=== PATIENT | female | born 1935 | race Caucasian/White ===

== ENCOUNTER 2023-03-18 21:24 | Inpatient (IN) ==
--- NOTE | 2023-03-18 21:33 | Emergency Department Note ---
Impression & Plan Closed left hip fracture, Fall, Acute hip pain ED Provider Note NAME: MEREDITH WHITEHEAD AGE: 88 SEX: F : 1935 ARRIVES VIA: Ambulance INFORMANT: Patient, ED PROVIDER(S): Kyler Kent MD CHIEF COMPLAINT: Fall, hip pain MEDICAL DECISION MAKING: Patient presents requesting from associated hip pain concerning for hip fracture. IV was established and blood obtained along with plain films of the left hip and pelvis. Patient was ordered IV morphine and IV Zofran. Patient's blood work shows a normal white count H&H and platelet count. The patient's kidney function is unremarkable. BSG 124 LFTs unremarkable. The patient's left hip x-ray does show an intertrochanteric fracture. Patient patient's family were informed of the findings. I did speak with the on-call hospital service Dr. Servin who and the on-call orthopedist Dr. Urbano was made aware by [place] text. Discussion w/ other healthcare providers: Dr. Servin inpatient medicine service Dr. Urbano orthopedics Prior /Outside records reviewed: None Differential diagnosis: Fracture, sprain, strain, subluxation, dislocation, contusion, ligamentous injury, neurovascular, as well as other etiologies were considered. Diagnostics, as interpreted by me: ECG: Sinus with first-degree AV block, rate of 77 prolonged SC, wide QRS with right bundle branch block pattern. Right axis deviation. No prior EKGs for comparison. Cardiac monitoring: An order was placed for continuous cardiac monitoring. The monitor shows a rate of 78 with sinus rhythm. Patient was placed on pulse oximetry Medical decision rules: None Imaging studies: I informally interpreted the patient's left hip and pelvis x-ray which does show a left intertrochanteric fracture with formal report to follow. I informally interpreted the patient's chest x-ray which does not show obvious pneumonia or pneumothorax with formal report to follow. HPI: Patient presents due to concern for hip pain. The patient was coming down the stairs did not quite separate on the last 2 stairs falling to her left side striking her left hip. The patient was unable to get up and ambulate thereafter. Patient denies any head strike or LOC. The patient's was able to move her legs secondary to pain. Patient did not receive anything prior to arrival and did require help getting up. Patient denies any head neck chest back upper extremity right lower extremity pain. Patient does not take blood thinning medications. PAST MEDICAL HISTORY: Herniated disc, hypertension, GERD PAST SURGICAL HISTORY: Partial colectomy SOCIAL HISTORY: Retired. Speaks Argentine. Lives in [place]. HOME MEDICATIONS: See Below ALLERGIES: See Below VITALS: See Below PHYSICAL EXAMINATION: GENERAL: NAD, non-toxic. EYE EXAM: Normal conjunctiva. PERRL, no anisocoria and EOM's grossly intact w/o pain. OROPHARYNX: Moist mucus membranes, grossly normal dentition. NECK: Supple, no nuchal rigidity, no adenopathy, non-tender. No signs of meningismus. FROM of the neck with good chin to chest and neck extension. No stridor. LUNGS: Clear to auscultation. Normal chest wall mechanics. HEART: NSR, no MRG. ABDOMEN: Abdomen soft, non-tender, no masses, no rebound or guarding. BACK: No CVA TTP. SKIN: No rashes and no bruising. UPPER EXTREMITIES: Upper extremities are grossly normal. LOWER EXTREMITIES: Left lower extremity externally rotated, decreased range of motion secondary to pain neurovascular intact distally in the foot SP DP tibialis nerve DP pulse present NEURO EXAM: A&O x3, cranial nerves II-XII grossly intact, normal speech, moves all 4 extremities. Past Med/Surg History Social History Smoking Status: Never smoker Preferred Language: Argentine Feels Safe at Home: Yes Allergies Allergies Allergy/AdvReac Type Severity Reaction Status Date / Time No Known Allergies Allergy Verified 03/18/23 22:15 Home Meds Home Medications Medication Instructions Recorded Confirmed losartan 25 mg tablet 25 mg PO BID 03/18/23 03/18/23 pantoprazole 40 mg tablet,delayed 40 mg PO DAILY 03/18/23 03/18/23 release vitamin A-vitamin C-vit E-min 1 tab PO DAILY 03/18/23 03/18/23 tablet Results & Data (ED) Vital Signs Vital Signs - 24 hr 03/18/23 21:36 03/18/23 22:02 03/18/23 22:19 Temperature 36.4 C L Temperature Source Oral Pulse Rate 85 80 Pulse Rate [Apical] 60 Pulse Rhythm Regular Respiratory Rate 22 18 27 H Respiratory Effort / Characteristics Respiratory Depth Normal Respiratory Pattern Blood Pressure 203/101 H Blood Pressure [Right Arm] 174/65 H Blood Pressure Mean 135 Blood Pressure Mean [Right Arm] 101 Pulse Oximetry 98 94 99 Oxygen Delivery Method Room Air Room Air Room Air Sepsis Recent Fever Within 48 Hours No Sepsis New/Unexplained Change in Mental Status No Sepsis Action Taken by Nursing No Action Required 03/18/23 22:22 03/18/23 23:04 Temperature Temperature Source Pulse Rate 75 Pulse Rate [Apical] 77 Pulse Rhythm Respiratory Rate 17 Respiratory Effort / Characteristics Non-Labored Respiratory Depth Normal Respiratory Pattern Regular Blood Pressure Blood Pressure [Right Arm] 181/72 H Blood Pressure Mean Blood Pressure Mean [Right Arm] 108 Pulse Oximetry 96 Oxygen Delivery Method Room Air Sepsis Recent Fever Within 48 Hours Sepsis New/Unexplained Change in Mental Status Sepsis Action Taken by Alf Medications Current Medication List: was personally reviewed by me Laboratory Data Attestation: I reviewed the patient's lab results. 03/18/23 21:50 03/18/23 21:50 Lab Results 03/18/23 Range/Units 21:50 WBC 7.35 (4.8-10.8) K/ul RBC 4.30 (4.20-5.40) M/uL Hgb 12.9 (12.0-16.0) g/dl Hct 39.9 (37.0-47.0) % MCV 92.8 (80.0-100.0) fL MCH 30.0 (25.0-34.0) pg MCHC 32.3 (32.0-36.0) g/dL RDW Std Deviation 47.5 H (36.4-46.3) fL RDW Coeff of Teresa 13.9 (11.5-14.5) % Plt Count 192 (130-400) K/uL MPV 11.0 (9.4-12.4) fL Immature Gran % (Auto) 1.0 % Neut % (Auto) 69.8 % Lymph % (Auto) 18.8 % [place] % (Auto) 9.1 % Eos % (Auto) 1.0 % Baso % (Auto) 0.3 % Neut # (Auto) 5.14 (1.40-6.50) K/uL Lymph # (Auto) 1.38 (1.20-3.40) K/uL [place] # (Auto) 0.67 H (0.11-0.59) K/uL Eos # (Auto) 0.07 (0.00-0.50) K/uL Baso # (Auto) 0.02 (0.00-0.20) K/uL Immature Gran # (Auto) 0.07 (0.01-0.20) K/uL Sodium 139 (136-145) mmol/L Potassium 3.8 (3.5-5.1) mmol/L Chloride 104 (98-107) mmol/L Carbon Dioxide 28 (21-32) mmol/L Anion Gap 7 (3-11) BUN 18 (6-23) mg/dl Creatinine 0.94 (0.6-1.2) mg/dl Est Cr Clr Drug Dosing Not Reportable Est GFR ( Amer) 62.3 ml/min Est GFR (Non-Af Amer) 53.8 ml/min BUN/Creatinine Ratio 19.1 (10-20) Glucose 124 H (70-99(Fasting)) mg/dl Calcium 9.4 (8.6-10.3) mg/dl Total Bilirubin 0.4 (0.2-1.0) mg/dl AST 19 (13-39) U/L ALT 13 (7-52) U/L Alkaline Phosphatase 98 (34-104) U/L Total Protein 6.6 (6.0-8.3) gm/dl Albumin 3.9 (3.4-5.0) gm/dl Globulin 2.7 (2.5-4.0) gm/dl Albumin/Globulin Ratio 1.4 (0.9-2) Administered Medications Discontinued Medications Morphine Sulfate (Morphine Sulfate 4 Mg/Ml 1 Ml Carp\Vial) 4 mg IV NOW STA Stop: 03/18/23 22:03 Last Admin: 03/18/23 22:20 Dose: 4 mg Documented By: JEREL Morphine Sulfate (Morphine Sulfate 4 Mg/Ml 1 Ml Carp\Vial) 3 mg IV NOW STA Stop: 03/18/23 23:26 Last Admin: 03/18/23 23:55 Dose: 3 mg Documented By: WILMER Ondansetron HCl (Ondansetron Inj 2 Mg/Ml 2 Ml Vial) 4 mg IV NOW STA Stop: 03/18/23 22:03 Last Admin: 03/18/23 22:21 Dose: 4 mg Documented By: JEREL Discharge Plan Visit Data Chief Complaint: Fall Stated Complaint: FALL DOWN 2 STEPS/HIP INJURY ED Provider: Kyler Kent Discharge Problem: Closed left hip fracture, Fall, Acute hip pain Patient Disposition: Admitted As Inpatient Discharge Instructions Interventions: ED Discharge Assessment Last Done: 03/19/23 00:04 Discharge Problem: Closed left hip fracture Qualifiers: Encounter type: initial encounter Qualified Code(s): S72.002A - Fracture of unspecified part of neck of left femur, initial encounter for closed fracture Fall Qualifiers: Encounter type: initial encounter Qualified Code(s): W19.XXXA - Unspecified fall, initial encounter Acute hip pain Qualifiers: Laterality: left Qualified Code(s): M25.552 - Pain in left hip
[2023-03-18] MEDS ORDERED: MoRPHine SULFATE 4 MG/ML 1 ML CARP\\VIAL IV STA ×2 (22:02→23:25)
[2023-03-18] MEDS ORDERED: ONDANSETRON INJ 2 MG/ML 2 ML VIAL IV STA (22:02)
[2023-03-18 22:17] LABS: Basophils # (auto) 0.02 K/uL (0.00-0.20); Basophils % (auto) 0.3 %; Eosinophils # (auto) 0.07 K/uL (0.00-0.50); Hematocrit (blood only) 39.9 % (37.0-47.0); Hemoglobin 12.9 g/dl (12.0-16.0); Immature Granulocytes # (auto) 0.07 K/uL (0.01-0.20); Lymphocytes # (auto) 1.38 K/uL (1.20-3.40); Lymphocytes % (auto) 18.8 %; Mean Corpuscular Hgb Conc 32.3 g/dL (32.0-36.0); Mean Corpuscular Volume 92.8 fL (80.0-100.0); Monocytes # (auto) 0.67 K/uL (0.11-0.59); Monocytes % (auto) 9.1 %; Neutrophils # (auto) 5.14 K/uL (1.40-6.50); Neutrophils % (auto) 69.8 %; Platelet Count 192 K/uL (130-400); RDW Coefficient of Variation 13.9 % (11.5-14.5); RDW Standard Deviation 47.5 fL (36.4-46.3); White Blood Count 7.35 K/ul (4.8-10.8)
[2023-03-18 22:21] LABS: Alanine Aminotransferase 13 U/L (7-52); Albumin Globulin Ratio 1.4 (0.9-2); Albumin Level 3.9 gm/dl (3.4-5.0); Alkaline Phosphatase 98 U/L (34-104); Anion Gap 7 (3-11); Aspartate Aminotransferase 19 U/L (13-39); BUN Creatinine Ratio 19.1 (10-20); Bilirubin,Total 0.4 mg/dl (0.2-1.0); Blood Urea Nitrogen 18 mg/dl (6-23); Calcium 9.4 mg/dl (8.6-10.3); Carbon Dioxide 28 mmol/L (21-32); Chloride 104 mmol/L (98-107); Est GFR (African American) 62.3 ml/min; Est GFR (Non-African American) 53.8 ml/min; Globulin 2.7 gm/dl (2.5-4.0); Glucose 124 mg/dl (70-99(Fasting)); Potassium 3.8 mmol/L (3.5-5.1); Sodium 139 mmol/L (136-145); Total Protein 6.6 gm/dl (6.0-8.3)
--- NOTE | 2023-03-19 00:01 | History & Physical Report ---
Date of Service March 18, 2023 Assessment & Plan (1) Hip fracture, left: Plan: 88-year-old female with past medical history significant for hypertension and GERD who is from [place] and visiting [place] s/p fall and left hip fracture. Left hip fracture Status post mechanical fall No significant cardiac or pulmonary history Ambulates okay prior to fall Patient should be at acceptable risk to proceed with surgery Pain control N.p.o. IV fluids Ortho consult Close monitor History of hypertension Hold losartan for now IV hydralazine as needed GERD PPI DVT prophylaxis Could not place on SCDs because of hip fracture. As per Ortho after procedure Disposition Medical floor Full code History of Present Illness Chief Complaint: Fall and left hip fracture Primary Care Provider: SVETLANA HURTADO 88-year-old female with past medical history significant for hypertension and GERD who is from [place] and visiting [place] is s/p fall and left hip fracture. Patient was trying to go to bathroom when she was trying to open the door she slipped and fell on the left side. Did not hit her head. No loss of consciousness. Not able to get up. And was brought in here and found a left hip fracture. Any movement is making her pain worse. No chest pain falling down. Patient is somewhat hard of hearing. Family in the room. Patient denies headache. No neck pain. No chest pain. Was nauseous after falling down. Was slightly short of breath because of anxiety and pain. No fevers. No recent cough. Currently hemodynamically stable. Past med history. As mentioned above Past surgical history. Hysterectomy. Had intestinal resection for for cancer in 2019 with no recurrence as per family. Social history. Quit smoking 40 years ago. No alcohol use. Family history. Significant for cancer in the family Allergies Allergy/AdvReac Type Severity Reaction Status Date / Time No Known Allergies Allergy Verified 03/18/23 22:15 Home Medications Medication Instructions Recorded Confirmed Type losartan 25 mg tablet 25 mg PO BID 03/18/23 03/18/23 History pantoprazole 40 mg tablet,delayed 40 mg PO DAILY 03/18/23 03/18/23 History release vitamin A-vitamin C-vit E-min 1 tab PO DAILY 03/18/23 03/18/23 History tablet Past Med/Surg History Social History Smoking Status: Never smoker Hx Alcohol Use: No Hx Substance Use: No Preferred Language: Lithuanian Communication Ability: Impaired Communication Ability Comment: pt is [place] [employer] Protection Technician Required: No Beliefs That Will Affect Care: None Current Living Situation: Alone Feels Safe at Home: Yes Safety Concerns: Feels Safe At This Time Assistive Devices: Glasses Review of Systems Review of Systems: All systems reviewed & are unremarkable except as noted in HPI & below Physical Exam Physical Exam: General- Not in distress Head- atraumatic Eyes- PERRL. ENT- oropharynx clear Neck- supple, no JVD. Lungs- clear to auscultation, no wheezing or crackles. Heart- regular rhythm; no murmur, no gallop. Abdomen- normal bowel sounds, soft, nontender, no distension. Extremities- Left lower extremity shortened and externally rotated,No edema or erythema seen. Neuro- alert, oriented PERRL,Hard of hearing no facial palsy; no dysarthria;Obeys commands. Skin- warm & dry Results & Data Results & Data Vital Signs (Past 12 Hours) Vital Signs Temp Pulse Pulse Resp BP BP Pulse Ox 03/18/23 23:04 77 17 181/72 H 96 03/18/23 22:22 75 03/18/23 22:19 60 27 H 174/65 H 99 03/18/23 21:36 36.4 C L 85 22 203/101 H 98 O2 Del Method 03/18/23 23:04 Room Air 03/18/23 22:22 03/18/23 22:19 Room Air 03/18/23 21:36 Room Air Diagnostic Findings Laboratory Results WBC 7.35 K/ul (4.8-10.8) 03/18/23 21:50 RBC 4.30 M/uL (4.20-5.40) 03/18/23 21:50 Hgb 12.9 g/dl (12.0-16.0) 03/18/23 21:50 Hct 39.9 % (37.0-47.0) 03/18/23 21:50 MCV 92.8 fL (80.0-100.0) 03/18/23 21:50 MCH 30.0 pg (25.0-34.0) 03/18/23 21:50 MCHC 32.3 g/dL (32.0-36.0) 03/18/23 21:50 RDW Std Deviation 47.5 fL (36.4-46.3) H 03/18/23 21:50 RDW Coeff of Teresa 13.9 % (11.5-14.5) 03/18/23 21:50 Plt Count 192 K/uL (130-400) 03/18/23 21:50 MPV 11.0 fL (9.4-12.4) 03/18/23 21:50 Immature Gran % (Auto) 1.0 % 03/18/23 21:50 Neut % (Auto) 69.8 % 03/18/23 21:50 Lymph % (Auto) 18.8 % 03/18/23 21:50 [place] % (Auto) 9.1 % 03/18/23 21:50 Eos % (Auto) 1.0 % 03/18/23 21:50 Baso % (Auto) 0.3 % 03/18/23 21:50 Neut # (Auto) 5.14 K/uL (1.40-6.50) 03/18/23 21:50 Lymph # (Auto) 1.38 K/uL (1.20-3.40) 03/18/23 21:50 [place] # (Auto) 0.67 K/uL (0.11-0.59) H 03/18/23 21:50 Eos # (Auto) 0.07 K/uL (0.00-0.50) 03/18/23 21:50 Baso # (Auto) 0.02 K/uL (0.00-0.20) 03/18/23 21:50 Immature Gran # (Auto) 0.07 K/uL (0.01-0.20) 03/18/23 21:50 Sodium 139 mmol/L (136-145) 03/18/23 21:50 Potassium 3.8 mmol/L (3.5-5.1) 03/18/23 21:50 Chloride 104 mmol/L (98-107) 03/18/23 21:50 Carbon Dioxide 28 mmol/L (21-32) 03/18/23 21:50 Anion Gap 7 (3-11) 03/18/23 21:50 BUN 18 mg/dl (6-23) 03/18/23 21:50 Creatinine 0.94 mg/dl (0.6-1.2) 03/18/23 21:50 Est Cr Clr Drug Dosing Not Reportable 03/18/23 21:50 Est GFR ( Amer) 62.3 ml/min 03/18/23 21:50 Est GFR (Non-Af Amer) 53.8 ml/min 03/18/23 21:50 BUN/Creatinine Ratio 19.1 (10-20) 03/18/23 21:50 Glucose 124 mg/dl (70-99(Fasting)) H 03/18/23 21:50 Calcium 9.4 mg/dl (8.6-10.3) 03/18/23 21:50 Total Bilirubin 0.4 mg/dl (0.2-1.0) 03/18/23 21:50 AST 19 U/L (13-39) 03/18/23 21:50 ALT 13 U/L (7-52) 03/18/23 21:50 Alkaline Phosphatase 98 U/L (34-104) 03/18/23 21:50 Total Protein 6.6 gm/dl (6.0-8.3) 03/18/23 21:50 Albumin 3.9 gm/dl (3.4-5.0) 03/18/23 21:50 Globulin 2.7 gm/dl (2.5-4.0) 03/18/23 21:50 Albumin/Globulin Ratio 1.4 (0.9-2) 03/18/23 21:50 ECG Additional Comments: ECG. Sinus rhythm with sinus rhythm with first-degree AV block. Right bundle branch block. No previous ECG available. Code Status & VTE Plan VTE Prophylaxis Plan VTE Prophylaxis will be ordered: Yes
[2023-03-19] MEDS ORDERED: hydrALAZINE HCL 20 MG/ML VIAL IV PRN (00:43)
[2023-03-19] MEDS ORDERED: ONDANSETRON INJ 2 MG/ML 2 ML VIAL IV PRN ×2 (00:43→09:47)
[2023-03-19] MEDS ORDERED: MoRPHine SULFATE 4 MG/ML 1 ML CARP\\VIAL IV PRN (00:43)
[2023-03-19] MEDS: D5W AND NSS 1,000 ML IV SCH ×3 (03:03→22:52)
[2023-03-19 07:12] LABS: Basophils # (auto) 0.02 K/uL (0.00-0.20); Basophils % (auto) 0.2 %; Eosinophils # (auto) 0.02 K/uL (0.00-0.50); Eosinophils % (auto) 0.2 %; Hematocrit (blood only) 34.6 % (37.0-47.0); Hemoglobin 11.2 g/dl (12.0-16.0); Immature Granulocytes # (auto) 0.05 K/uL (0.01-0.20); Immature Granulocytes % (auto) 0.6 %; Lymphocytes # (auto) 0.85 K/uL (1.20-3.40); Lymphocytes % (auto) 9.7 %; Mean Corpuscular Hgb Conc 32.4 g/dL (32.0-36.0); Mean Corpuscular Volume 92.8 fL (80.0-100.0); Mean Platelet Volume 11.2 fL (9.4-12.4); Monocytes # (auto) 0.78 K/uL (0.11-0.59); Monocytes % (auto) 8.9 %; Neutrophils # (auto) 7.01 K/uL (1.40-6.50); Neutrophils % (auto) 80.4 %; Platelet Count 163 K/uL (130-400); RDW Coefficient of Variation 13.8 % (11.5-14.5); RDW Standard Deviation 46.9 fL (36.4-46.3); Red Blood Count 3.73 M/uL (4.20-5.40); White Blood Count 8.73 K/ul (4.8-10.8)
[2023-03-19 07:19] LABS: Anion Gap 5 (3-11); BUN Creatinine Ratio 19.5 (10-20); Blood Urea Nitrogen 15 mg/dl (6-23); Calcium 8.5 mg/dl (8.6-10.3); Carbon Dioxide 25 mmol/L (21-32); Chloride 108 mmol/L (98-107); Est GFR (African American) 79.3 ml/min; Est GFR (Non-African American) 68.5 ml/min; Glucose 163 mg/dl (70-99(Fasting)); Magnesium 1.7 mg/dl (1.7-2.4); Sodium 138 mmol/L (136-145)
[2023-03-19] MEDS ORDERED: MAGNESIUM SULFATE / D5W 1 GM/100 ML BAG IV ONE (07:38)
--- NOTE | 2023-03-19 07:41 | Hospitalist Progress Note ---
Date of Service March 19, 2023 Assessment & Plan (1) Hip fracture, left: Plan: 88-year-old female with past medical history significant for hypertension and GERD who is from [place] and visiting [place] s/p fall and left hip fracture. Left hip fracture Status post mechanical fall No significant cardiac or pulmonary history Ambulates prior to fall Patient should be at acceptable risk to proceed with surgery Pain control N.p.o. IV fluids Orthopedics consulted - will proceed to the operating room this morning for open reduction internal fixation left intertrochanteric femur fracture with an intramedullary nail. Closely monitor History of hypertension Hold losartan for now IV hydralazine as needed GERD PPI DVT prophylaxis Could not place on SCDs because of hip fracture. As per Ortho after procedure Disposition Medical floor Full code Admission and Anticipated Discharge Date Admission Date: March 18, 2023 Subjective Pt seen in follow up of hip fracture Currently laying in bed in NAD No chest pain, palpitations, shortness of breath. No abd. pain n/v She confirms she had a mechanical fall Seen by surgery this AM - plan for OR later today Review of Systems Review of Systems: All systems reviewed & are unremarkable except as noted in Subjective Physical Exam Physical Exam: General- Not in di stress Head- atr aumatic Eyes- PER RL. ENT- orophary nx clear Neck- vasquez pple, no JVD. Ry gs- clear to auscu ltation, no wheezi ng or crackles. H eart- regular rhyt hm; no murmur, no gallop. Abdomen- normal bowel sound s, soft, nontender , no distension. Extremities- Left lower extremity sh ortened and band splicer ally rotated,No ed andre or erythema se en. Neuro- alert, oriented PERRL,H hallie of hearing no facial palsy; no dysarthria;Obeys c ommands. Skin- wa rm & dry Results & Data Results & Data Vital Signs (Past 12 Hours) Vital Signs Temp Pulse Pulse Pulse Resp BP BP 03/19/23 07:16 36.7 C 76 16 145/66 H 03/19/23 02:01 36.9 C 76 20 177/76 H 03/19/23 00:04 82 16 154/77 H 03/18/23 23:04 77 17 181/72 H 03/18/23 22:22 75 03/18/23 22:19 60 27 H 174/65 H 03/18/23 22:02 80 18 03/18/23 21:36 36.4 C L 85 22 203/101 H Pulse Ox O2 Del Method 03/19/23 07:16 99 Room Air 03/19/23 02:01 98 Room Air 03/19/23 00:04 94 Room Air 03/18/23 23:04 96 Room Air 03/18/23 22:22 03/18/23 22:19 99 Room Air 03/18/23 22:02 94 Room Air 03/18/23 21:36 98 Room Air Laboratory Results 03/19/23 03/18/23 Range/Units 06:33 21:50 WBC 8.73 7.35 (4.8-10.8) K/ul RBC 3.73 L 4.30 (4.20-5.40) M/uL Hgb 11.2 L 12.9 (12.0-16.0) g/dl Hct 34.6 L 39.9 (37.0-47.0) % MCV 92.8 92.8 (80.0-100.0) fL MCH 30.0 30.0 (25.0-34.0) pg MCHC 32.4 32.3 (32.0-36.0) g/dL RDW Std Deviation 46.9 H 47.5 H (36.4-46.3) fL RDW Coeff of Teresa 13.8 13.9 (11.5-14.5) % Plt Count 163 192 (130-400) K/uL MPV 11.2 11.0 (9.4-12.4) fL Immature Gran % (Auto) 0.6 1.0 % Neut % (Auto) 80.4 69.8 % Lymph % (Auto) 9.7 18.8 % [place] % (Auto) 8.9 9.1 % Eos % (Auto) 0.2 1.0 % Baso % (Auto) 0.2 0.3 % Neut # (Auto) 7.01 H 5.14 (1.40-6.50) K/uL Lymph # (Auto) 0.85 L 1.38 (1.20-3.40) K/uL [place] # (Auto) 0.78 H 0.67 H (0.11-0.59) K/uL Eos # (Auto) 0.02 0.07 (0.00-0.50) K/uL Baso # (Auto) 0.02 0.02 (0.00-0.20) K/uL Immature Gran # (Auto) 0.05 0.07 (0.01-0.20) K/uL Sodium 138 139 (136-145) mmol/L Potassium 4.0 3.8 (3.5-5.1) mmol/L Chloride 108 H 104 (98-107) mmol/L Carbon Dioxide 25 28 (21-32) mmol/L Anion Gap 5 7 (3-11) BUN 15 18 (6-23) mg/dl Creatinine 0.77 0.94 (0.6-1.2) mg/dl Est Cr Clr Drug Dosing Not Reportable Not Reportable Est GFR ( Amer) 79.3 62.3 ml/min Est GFR (Non-Af Amer) 68.5 53.8 ml/min BUN/Creatinine Ratio 19.5 19.1 (10-20) Glucose 163 H 124 H (70-99(Fasting)) mg/dl Calcium 8.5 L 9.4 (8.6-10.3) mg/dl Magnesium 1.7 (1.7-2.4) mg/dl Total Bilirubin 0.4 (0.2-1.0) mg/dl AST 19 (13-39) U/L ALT 13 (7-52) U/L Alkaline Phosphatase 98 (34-104) U/L Troponin I High Sens 7.0 (0-14) pg/ml Total Protein 6.6 (6.0-8.3) gm/dl Albumin 3.9 (3.4-5.0) gm/dl Globulin 2.7 (2.5-4.0) gm/dl Albumin/Globulin Ratio 1.4 (0.9-2) Medications Administered Current Inpatient Medications Acetaminophen (Acetaminophen 325 Mg Tab) 650 mg PO Q4H PRN PRN Reason: pain/fever Stop: 04/18/23 00:42 Hydralazine HCl (Hydralazine Hcl 20 Mg/Ml Vial) 5 mg IV Q6H PRN PRN Reason: Hypertension Stop: 04/18/23 00:42 Dextrose/Sodium Chloride (D5w And Nss) 1,000 mls @ 100 mls/hr IV .Q10H JOSE GUADALUPE Stop: 04/18/23 00:42 Last Admin: 03/19/23 03:03 Dose: 100 mls/hr Magnesium Sulfate/Dextrose (Magnesium Sulfate / D5w) 1 gm in 100 mls @ 50 mls/hr IV ONE ONE Stop: 03/19/23 09:37 Morphine Sulfate (Morphine Sulfate 4 Mg/Ml 1 Ml Carp\Vial) 3 mg IV Q3H PRN PRN Reason: Pain Stop: 04/02/23 00:42 Ondansetron HCl (Ondansetron Inj 2 Mg/Ml 2 Ml Vial) 4 mg IV Q6H PRN PRN Reason: Nausea Stop: 04/18/23 00:42 Pantoprazole Sodium (Pantoprazole 40 Mg Tab) 40 mg PO DAILY [facility] Stop: 04/18/23 08:59
[2023-03-19] MEDS: PANTOprazole 40 MG TAB PO SCH (07:58)
--- NOTE | 2023-03-19 08:31 | Orthopedic Consultation ---
Date of Consultation March 19, 2023 Assessment & Plan (1) Intertrochanteric fracture of left femur: I discussed the diagnosis with the patient and also with her daughter Raymond via telephone. Surgery is the recommended treatment for this injury. I reviewed the risks and benefits of surgery, alternatives to surgery, and expected outcomes. After reviewing all these they elected to proceed with surgery. All questions were answered. Informed consent was signed by the patient. She has been n.p.o. since midnight last night. We will proceed to the operating room this morning for open reduction internal fixation left intertrochanteric femur fracture with an intramedullary nail. Plan on readmi tting to the floor after surgery. Patient stated that her plan was to go back to [place] March 25. Because of this injury and upcoming surgery however I explained to her that this was probably not a good idea. She will likely need placement in a assisted facility or rehab facility after discharging from the hospital. (2) Fall: History of Present Illness Reason for Consultation: Left hip fracture Attending Physician: Dheeraj Kenny MD History of Present Illness 88-year-old female with past medical history significant for hypertension and GERD who is from [place] and visiting her daughter and son-in-law in [place]. Yesterday, patient was trying to go to the bathroom when she tried to open the door she slipped and fell on the left side. Did not hit her head. No loss of consciousness. Immediate onset of left hip pain. She was not able to get up. She was brought to the emergency room and found a left hip fracture. Any movement is making her pain worse. No chest pain. Patient is somewhat hard of hearing. Patient denies headache. No neck pain. No chest pain. Was nauseous after falling down. Was slightly short of breath because of anxiety and pain. No fevers. No recent cough. Currently hemodynamically stable. Orthopedics was consulted for evaluation and management of the left hip fracture. Patient was seen and examined on the floor this morning. She denies pain anywhere else in her body other than her left hip. She says it hurts if she tries to move her leg or left. The pain is not too bad however so long as she is immobile. She has not had a bowel movement since yesterday. She says when she was going to the bathroom that is what she was hoping to accomplish. She did pass a lot of gas last night. Denies any numbness or tingling down the leg. She reports a history of 3 slipped disks in her back, however denies any previous problems with the left hip. She walks with a cane outside of the house and lives independently in [place]. Her is , he was previously a defective cigarette slitter. She lives across the [address] from the [facility]. Past med history. As mentioned above Past surgical history. Hysterectomy. Had intestinal resection for for cancer in 2019 with no recurrence as per family. Social history. Quit smoking 40 years ago. No alcohol use. Family history. Significant for cancer in the family Allergies Allergy/AdvReac Type Severity Reaction Status Date / Time No Known Allergies Allergy Verified 03/18/23 22:15 Home Medications Medication Instructions Recorded Confirmed Type losartan 25 mg tablet 25 mg PO BID 03/18/23 03/18/23 History pantoprazole 40 mg tablet,delayed 40 mg PO DAILY 03/18/23 03/18/23 History release vitamin A-vitamin C-vit E-min 1 tab PO DAILY 03/18/23 03/18/23 History tablet Patient History Social History Smoking Status: Never smoker Hx Alcohol Use: No Hx Substance Use: No Preferred Language: [place] Citizen Communication Ability: Impaired Communication Ability Comment: pt is [facility] Patient Services Specialist Required: No Beliefs That Will Affect Care: None Current Living Situation: Alone Feels Safe at Home: Yes Safety Concerns: Feels Safe At This Time Assistive Devices: Glasses Physical Exam Physical Exam: On exam she is a pleasant female alert and oriented x 3. She has a little difficulty answering questions but is able to easily follow our conversation. Left lower extremity exam reveals the left leg to be shortened and externally rotated. There are no skin lesions. She reports sensation intact to moving light touch over the dorsal and plantar aspects of the foot. She is able to wiggle her toes and fire EHL FHL tib ant gastrocsoleus. Did not test range of motion of her hip secondary to pain. Skin is warm and well-perfused however it is difficult to palpate her dorsalis pedis and posterior tibial pulses. Results & Data Vital Signs (Past 12 Hours) Vital Signs Temp Pulse Pulse Pulse Resp BP BP 12/24/23 07:16 36.7 C 76 16 145/66 H 03/19/23 02:01 36.9 C 76 20 177/76 H 03/19/23 00:04 82 16 154/77 H 03/18/23 23:04 77 17 181/72 H 03/18/23 22:22 75 03/18/23 22:19 60 27 H 174/65 H 03/18/23 22:02 80 18 03/18/23 21:36 36.4 C L 85 22 203/101 H Pulse Ox O2 Del Method 03/19/23 07:16 99 Room Air 03/19/23 02:01 98 Room Air 03/19/23 00:04 94 Room Air 03/18/23 23:04 96 Room Air 03/18/23 22:22 03/18/23 22:19 99 Room Air 03/18/23 22:02 94 Room Air 03/18/23 21:36 98 Room Air Diagnostic Findings X-rays of the left hip done yesterday demonstrate a left intertrochanteric femur fracture with displacement. (2) Fall Encounter type: initial encounter Qualified Code(s): W19.XXXA - Unspecified fall, initial encounter
--- NOTE | 2023-03-19 08:39 | XRay Report ---
XR chest 1V portable HISTORY: Preop. Left hip fracture. COMPARISON: None. FINDINGS: No pneumothorax. The lungs are clear. The cardiac silhouette is borderline enlarged. There are calcifications within the aortic knob. No acute fractures identified. No pleural effusions. No ev idence for pulmonary edema. IMPRESSION: No acute process. ACT 112: Negative or not required by law. Electronically signed by: Rickey Sims M.D. 03/19/2023 8:38 AM
--- NOTE | 2023-03-19 08:39 | XRay Report ---
XR hip LT 2V w pelvis CLINICAL HISTORY: fall. Left hip pain. COMPARISON STUDY: None. FINDINGS: Slightly comminuted and mildly displaced intertrochanteric fracture within the proximal lef t femur. No dislocation. The visualized pelvic bones are intact. IMPRESSION: Left femoral intertrochanteric fracture. ACT 112: Negative or not required by law. Electronically signed by: Rickey Sims M.D. 03/19/2023 8:38 AM
[2023-03-19] MEDS ORDERED: LIDOCAINE 2% 2 ML VIAL/AMP(20MG/ML) INFIL ONE (09:16)
[2023-03-19] MEDS ORDERED: DEXAMETHASONE SOD INJ 4 MG/ML VIAL ONE (09:16)
[2023-03-19] MEDS ORDERED: ONDANSETRON INJ 2 MG/ML 2 ML VIAL ONE (09:16)
[2023-03-19] MEDS ORDERED: SUCCINYLCHOLINE CHLORIDE 20 MG/ML 10 ML VIAL IV ONE (09:16)
[2023-03-19] MEDS ORDERED: ROCURONIUM BROMIDE 10 MG/ML 5 ML VIAL IV ONE (09:16)
[2023-03-19] MEDS ORDERED: PROPOFOL IV EMULSION 10 MG/ML 20 ML VIAL IV ONE (09:16)
[2023-03-19] MEDS ORDERED: fentaNYL citrate PF 100 MCG/2 ML VIAL ONE ×3 (09:18→11:42)
--- NOTE | 2023-03-19 09:46 | Anesthesiology Consultation ---
Date of Service March 19, 2023 Assessment & Plan Chart Review Chart Review: Acceptable Risk for Surgery and Patient NOT seen in Pre Admission Testing Consults Requested none ASA ASA2 Proposed Anesthesia Anesthesia Type: General Risk / Benefits Reviewed With: PT / POA / Parent / Guardian, Accepts Plan and Informed Consent Obtained History Surgery Operation Date: 03/19/23 09:00 Proposed Procedures p Intramedullary Bry Femur(Left) - Ketan Urbano MD Height/Weight Weight: 65.907 kg Allergies Allergy/AdvReac Type Severity Reaction Status Date / Time No Known Allergies Allergy Verified 03/18/23 22:15 Medications Home Medications Medication Instructions Recorded Confirmed Last Taken losartan 25 mg tablet 25 mg PO BID 03/18/23 03/18/23 03/18/23 pantoprazole 40 mg tablet,delayed 40 mg PO DAILY 03/18/23 03/18/23 03/18/23 release vitamin A-vitamin C-vit E-min 1 tab PO DAILY 03/18/23 03/18/23 03/18/23 tablet Active Medications Generic Name Dose Route Start Last Admin Trade Name Uzair PRN Reason Stop Dose Admin Dextrose/Sodium Chloride 1,000 mls @ 100 mls/hr 03/19/23 00:43 03/19/23 03:03 D5w And Nss IV 04/18/23 00:42 100 mls/hr .Q10H JOSE GUADALUPE Administration Pantoprazole Sodium 40 mg 03/19/23 09:00 03/19/23 07:58 Pantoprazole 40 Mg Tab PO 04/18/23 08:59 40 mg DAILY JOSE GUADALUPE Administration NPO Date Last Intake of Fluids: 03/18/23 Date Last Intake of Solids: 03/18/23 Exercise / Class Metabolic Activity III < 4 Walking/Shop/Light housework Past Anesthesia History No Hx of Anesthesia Complications and No Family Hx of Anesthesia Complications History of PONV No Hx of PONV and No Hx of Motion Sickness Social History Smoking Status: Never smoker Hx Alcohol Use: No Hx Substance Use: No Review of Systems ROS Unobtainable: All systems reviewed & are unremarkable except as noted in HPI & below Physical Exam Vital Signs Last Vital Signs Temp 36.7 C 03/19/23 07:16 Pulse 76 03/19/23 07:16 Resp 16 03/19/23 07:16 BP 145/66 H 03/19/23 07:16 Pulse Ox 99 03/19/23 07:16 O2 Del Method Room Air 03/19/23 07:16 ENMT Mouth: no TMJ abnormality Thyromental Distance: > or= 3.5 Finger Breadths Mallampati Class: II Neck normal visual inspection and trachea midline; neck extension not limited Respiratory normal respiratory effort Auscultation: lungs clear to auscultation bilaterally Cardiovascular Rate/Rhythm: regular rate and regular rhythm Heart Sounds: no murmur Musculoskeletal Spine: normal cervical ROM Extremities: full ROM of extremities Neurologic moves all extremities Psychiatric Orientation: alert and oriented x 3 Testing Laboratory Results 03/19/23 06:33 03/19/23 06:33 Electrocardiogram Date: 03/18/23 Findings: + NSR @ 1st degree AVB
[2023-03-19] MEDS ORDERED: ePHEDrine sulfate 50 MG/ML AMP IV PRN (09:47)
[2023-03-19] MEDS ORDERED: MIDAZOLAM HCL 1 MG/ML 2ML VIAL ONE (09:47)
[2023-03-19] MEDS ORDERED: ATROPINE SULFATE 0.1 MG/ML 10ML SYR IV PRN (09:47)
[2023-03-19] MEDS ORDERED: BUPIVACAINE/EPINEPHRINE 0.25% 1:200,000 30 ML VIAL ONE (09:55)
[2023-03-19] MEDS ORDERED: SUGAMMADEX SODIUM 200 MG/2 ML VIAL IV ONE (10:37)
[2023-03-19] MEDS ORDERED: ceFAZolin 2000MG 2,000 MG/15 ML SYR IV ONE (10:38)
--- NOTE | 2023-03-19 11:27 | Operative Report ---
Post Operative Report Pre & Post Diagnosis Operation Date: 03/19/23 09:00 Pre-Op Diagnosis: Intertrochanteric fracture of left femur. Post-Op Diagnosis: Intertrochanteric fracture of left femur. I identified the patient and participated in the time-out.: Yes Procedure Operation Date: 03/19/23 09:00 Actual Procedures p Open reduction internal fixation left intertrochanteric femur fracture with intramedullary nail. (Left) - Ketan Urbano MD Surgeon Ketan Urbano M.D. Senior Materials Planner Jeannie Lambert PA-C Estimated Blood Loss 50 Findings Consistent with Post-Op Diagnosis Specimens None Anesthesia Type General Description of Procedure Patient was taken to the operating room and placed under general anesthesia. Time out was performed. She was given 2 g of IV Ancef for surgical prophylaxis. She was prepped and draped in routine sterile fashion. Is present during the entire case and assisted with tissue retraction, implantation of hardware, reduction of fracture and closure. Please see Dr. Urbano's operative report for further details regarding today's procedure. Patient was awakened and transferred to the recovery room in stable condition. I attest to the content of the Intraoperative Record and any orders documented therein. Any exceptions are noted below.
--- NOTE | 2023-03-19 11:33 | Fluoroscopy Report ---
FL hip LT 2-3V CLINICAL HISTORY: LT HIP IM NAIL COMPARISON STUDY: Left hip 03/18/2023. FLUOROSCOPY TIME: 1 minute and 27 seconds FLUOROSCOPY IMAGES: 4 Ka,r: 22.7 mGy FINDINGS: Status post internal fixation of the left femoral intertrochanteric fracture with a proxima l femoral intramedullary belkis and interlocking femoral neck pin. The hardware is intact. Alignment is near-anatomic. IMPRESSION: Fluoroscopic assistance as above. ACT 112: Negative or not required by law. Electronically signed by: Rickey Sims M.D. 03/19/2023 11:32 AM
[2023-03-19] MEDS: fentaNYL citrate PF 100 MCG/2 ML VIAL IV PRN ×2 (11:40→11:45)
--- NOTE | 2023-03-19 11:40 | Operative Report ---
Post Operative Report Pre & Post Diagnosis Operation Date: 03/19/23 09:00 Pre-Op Diagnosis: displaced Intertrochanteric fracture of left femur. Post-Op Diagnosis: displaced Intertrochanteric fracture of left femur. I identified the patient and participated in the time-out.: Yes Procedure Operation Date: 03/19/23 09:00 Actual Procedures p Open reduction internal fixation left displaced intertrochanteric femur fracture with intramedullary nail. (Left) - Ketan Urbano MD Surgeon Ketan Urbano MD Risk Analyst Jeannie Lambert PA-C Estimated Blood Loss 50 Findings Consistent with Post-Op Diagnosis Specimens None Anesthesia Type General Complications none Disposition Disposition: Recovery Room Indications 88-year-old female, fell walking to the bathroom yesterday while visiting relatives here in [place]. She is originally from [place]. Immediate onset of left hip pain. X-rays showed intertrochanteric femur fracture. She was brought to the emergency room yesterday and admitted to the internal medicine service. I saw her this morning. Discussed the diagnosis and treatment options. Surgery is indicated to allow her to regain the ability to ambulate. I had a long discussion with the patient and her daughter about the risks and benefits of surgery, alternatives to surgery, and expected outcomes. She elected to proceed with surgery. All questions were answered. Informed consent was signed. Description of Procedure Patient was identified on the floor where her surgical site was marked. She was brought down to the operating room where general anesthesia was administered on the hospital bed. She was then carefully moved onto the fracture table. The nonoperative hip was flexed and AB ducted to facilitate fluoroscopic visua lization. The operative foot was well-padded with ABD pads and then secured in the traction boot. Paralytic was administered by anesthesia. Fluoroscopy was then brought in. I was then able to perform a closed reduction using a combination of traction as well as internal rotation of the hip. This was confirmed on the AP and lateral fluoroscopic views. She was then prepped and draped in the usual sterile fashion. Prior to incision a multidisciplinary timeout was called. All in the room were in agreement. I began by making a 5 cm long incision starting approximately 4 cm above the tip of the greater trochanter and moving proximally in line with the fibers of the gluteus ovidio. I dissected down through subcutaneous tissues to the level of the fascia. Meticulous hemostasis was ensured. A guidewire was then chilel through the fascia and the starting point for intramedullary nail was optimized on the AP and lateral fluoroscopic views. Once the starting point was optimized I then drove the wire into the proximal femur to approximately the level of the lesser trochanter. The fascia was then incised approximately 2 cm on each side of the wire. The opening reamer was then used to open the proximal canal. Once this was complete we opened up a 12 mm diameter short Synthes titanium nail. This was inserted into the proximal femur and tapped down to the appropriate level. It had excellent fit within the intramedullary canal. Once the nail was appropriately positioned in the proximal distal orientation small stab incision was made on the lateral aspect of the femur. The targeting guide was then inserted through the stab incision down onto the femur and secured. Once again we optimized the starting position for our K wire into the femoral head. Once this was complete the guidewire was driven up into the femoral head just slightly posterior to the center center position. We took our measurement which was 102 mm. I elected to use a 95 mm length helical blade. The cortex was opened and then the step reamer was used to ream for the helical blade up to the subchondral bone in the femoral head. The helical blade was opened up on the back table and attached to the warehouse guard. It was then tapped up over the wire. Once it was at the appropriate location where I then compressed the fracture. However we had an excellent reduction so there was really minimal compression that needed to take place. Once this was complete I then locked the helical blade to the nail using the screwdriver from the top of the nail. The targeting guide for the distal cross lock screw was then attached to the outrigger device. The incision on the lateral femur had to be extended distally another couple millimeters to allow this to chilel through the skin and down onto the bone. I then drilled bicortically and took our measurement. It was 34 mm. The 5 mm x 34 mm titanium locking screw was then placed through the targeting guide. Excellent fixation was obtained. At this point the outrigger for the nail was removed and her final fluoroscopic images were obtained. I was very happy with the reduction of the fracture and the position of her hardware. The wound was then irrigated out with copious amounts normal saline. The fascial incision at our proximal incision site was closed with 0 Vicryl sutures. 0 Vicryl's were used for the subcutaneous layer in interrupted fashion. 2-0 Vicryl sutures were used for both incisions in the deep dermal layer. Hastings were used for the skin. Sterile dressings were applied. Patient was then carefully moved onto the hospital bed, extubated, and transferred recovery room in stable condition. Postoperative course: Patient will be readmitted to the internal medicine service. She will be weightbearing as tolerated with a walker for minimum of the next 2 to 3 months. She will be on aspirin for DVT prophylaxis. I attest to the content of the Intraoperative Record and any orders documented t herein. Any exceptions are noted below.
[2023-03-19] MEDS ORDERED: hydrALAZINE HCL 20 MG/ML VIAL IV STA (11:59)
--- NOTE | 2023-03-19 12:46 | Anesthesiology Progress Note ---
Date of Service March 19, 2023 Anesthesia Post Procedure Vital Signs Vital Signs: Temp Pulse Pulse Pulse Resp BP BP 03/19/23 12:37 36.6 C 88 16 142/62 H 03/19/23 12:25 83 18 158/56 H 03/19/23 12:15 36.3 C L 84 20 165/71 H 03/19/23 12:05 74 15 174/68 H 03/19/23 11:55 72 14 189/65 H 03/19/23 11:45 74 17 182/65 H 03/19/23 11:35 74 18 133/83 03/19/23 11:28 36.2 C L 75 16 160/61 H 03/19/23 08:00 03/19/23 07:16 36.7 C 76 16 145/66 H 03/19/23 02:01 36.9 C 76 20 177/76 H 03/19/23 00:04 82 16 154/77 H 03/18/23 23:04 77 17 181/72 H 03/18/23 22:22 75 03/18/23 22:19 60 27 H 174/65 H 03/18/23 22:02 80 18 03/18/23 21:36 36.4 C L 85 22 203/101 H Pulse Ox O2 Del Method O2 Flow Rate 03/19/23 12:37 100 Room Air 03/19/23 12:25 100 Room Air 03/19/23 12:15 99 Oxymask 4 03/19/23 12:05 100 Oxymask 4 03/19/23 11:55 100 Oxymask 4 03/19/23 11:45 100 Oxymask 4 03/19/23 11:35 100 Oxymask 4 03/19/23 11:28 100 Oxymask 4 03/19/23 08:00 Room Air 03/19/23 07:16 99 Room Air 03/19/23 02:01 98 Room Air 03/19/23 00:04 94 Room Air 03/18/23 23:04 96 Room Air 03/18/23 22:22 03/18/23 22:19 99 Room Air 03/18/23 22:02 94 Room Air 03/18/23 21:36 98 Room Air Pain Intensity Left Hip: Pain Intensity: 5 Transfer of Care Handoff Completed per policy Notes Mental Status: alert / awake / arousable Patient Amnestic to Procedure: Yes Nausea / Vomiting: adequately controlled Pain: adequately controlled Airway Patency, RR, SpO2: stable & adequate BP & HR: stable & adequate Hydration State: stable & adequate Anesthetic Complications: no major complications apparent and Pt Satisfied with anesthetic care
[2023-03-19] MEDS: ceFAZolin 1000MG 1,000 MG/7.5 ML SYR IV SCH (17:41)
[2023-03-19] MEDS: ACETAMINOPHEN 325 MG TAB PO PRN (18:09)
[2023-03-19] MEDS: LOSARTAN POTASSIUM 25 MG TAB PO SCH (21:44)
[2023-03-20] MEDS: ceFAZolin 1000MG 1,000 MG/7.5 ML SYR IV SCH (02:50)
--- NOTE | 2023-03-20 06:17 | Electrocardiogram Report ---
Test Reason : Blood Pressure : / mmHG Vent. Rate : 077 BPM Atrial Rate : 077 BPM P-R Int : 260 ms QRS Dur : 176 ms QT Int : 426 ms P-R-T Axes : 078 101 016 degrees QTc Int : 482 ms Sinus rhythm with sinus arrhythmia with 1st degree A-V block Right bundle branch block Abnormal ECG No previous ECGs available Confirmed by Brian León ([id number]) on 03/20/2023 6:16:25 AM Referred By: REFERRED SELF Confirmed By:Brian León
[2023-03-20 06:46] LABS: Basophils # (auto) 0.01 K/uL (0.00-0.20); Basophils % (auto) 0.1 %; Eosinophils # (auto) 0.05 K/uL (0.00-0.50); Eosinophils % (auto) 0.6 %; Hematocrit (blood only) 31.2 % (37.0-47.0); Immature Granulocytes # (auto) 0.02 K/uL (0.01-0.20); Immature Granulocytes % (auto) 0.2 %; Lymphocytes # (auto) 1.12 K/uL (1.20-3.40); Lymphocytes % (auto) 13.6 %; Mean Corpuscular Hemoglobin 29.6 pg (25.0-34.0); Mean Corpuscular Hgb Conc 32.1 g/dL (32.0-36.0); Mean Corpuscular Volume 92.3 fL (80.0-100.0); Mean Platelet Volume 11.6 fL (9.4-12.4); Monocytes # (auto) 0.97 K/uL (0.11-0.59); Monocytes % (auto) 11.8 %; Neutrophils # (auto) 6.05 K/uL (1.40-6.50); Neutrophils % (auto) 73.7 %; Platelet Count 135 K/uL (130-400); RDW Standard Deviation 47.7 fL (36.4-46.3); Red Blood Count 3.38 M/uL (4.20-5.40); White Blood Count 8.22 K/ul (4.8-10.8)
[2023-03-20 06:55] LABS: Anion Gap 4 (3-11); BUN Creatinine Ratio 14.8 (10-20); Blood Urea Nitrogen 12 mg/dl (6-23); Carbon Dioxide 24 mmol/L (21-32); Chloride 110 mmol/L (98-107); Est GFR (African American) 74.6 ml/min; Est GFR (Non-African American) 64.4 ml/min; Glucose 133 mg/dl (70-99(Fasting)); Magnesium 1.8 mg/dl (1.7-2.4); Phosphorus 2.4 mg/dl (2.5-4.9); Potassium 3.9 mmol/L (3.5-5.1); Sodium 138 mmol/L (136-145)
--- NOTE | 2023-03-20 07:52 | Hospitalist Progress Note ---
Date of Service March 20, 2023 Assessment & Plan (1) Hip fracture, left: Plan: 88-year-old female with past medical history significant for hypertension and GERD who is from [place] and visiting [place] s/p fall and left hip fracture. Left hip fracture Status post mechanical fall No significant cardiac or pulmonary history Ambulates prior to fall Patient should be at acceptable risk to proceed with surgery Pain control IV fluids Orthopedics consulted - s/p open reduction internal fixation left intertrochanteric femur fracture with an intramedullary nail. (03/19/2023) Closely monitor PT/OT per ortho DVT ppx per ortho - ASA bid Acute blood loss anemia, post-op vs dilutional -current Hgb 10, pre-op 12.9 - expected no need for blood transfusion - cont. to monitor Hypovitaminosis D - vit D level 29.1 -started vit. D supplement Hypertension - losartan resumed - IV hydralazine as needed GERD PPI DVT prophylaxis ASA bid As per Ortho Disposition Medical floor Full code Admission and Anticipated Discharge Date Admission Date: March 18, 2023 Subjective Pt seen in follow up of hip fracture Currently sitting up in chair in NAD S/p - ORIF left displaced intertrochanteric femur fracture with intramedullary nail, yesterday No chest pain, palpitations, shortness of breath. No abd. pain n/v Review of Systems Review of Systems: All systems reviewed & are unremarkable except as noted in Subjective Physical Exam Physical Exam: General- Not in di stress Head- atr aumatic Eyes- PER RL. ENT- orophary nx clear Neck- vasquez pple, no JVD. Ry gs- clear to auscu ltation, no wheezi ng or crackles. H eart- regular rhyt hm; no murmur, no gallop. Abdomen- normal bowel sound s, soft, nontender , no distension. Extremities- surgi júnior dressings note d over left hip, s mall erythema note d by dressings, no significant edema noted Neuro- sherri rt, oriented PERR L,Hard of hearing no facial palsy; no dysarthria;Obey s commands. Skin- warm & dry Results & Data Results & Data Vital Signs (Past 12 Hours) Vital Signs Temp Pulse Resp BP Pulse Ox O2 Del Method 03/20/23 03:05 37.3 C 71 16 119/58 L 95 Room Air 03/19/23 21:43 36.7 C 77 16 123/65 96 Room Air Laboratory Results 03/20/23 Range/Units 05:33 WBC 8.22 (4.8-10.8) K/ul RBC 3.38 L (4.20-5.40) M/uL Hgb 10.0 L (12.0-16.0) g/dl Hct 31.2 L (37.0-47.0) % MCV 92.3 (80.0-100.0) fL MCH 29.6 (25.0-34.0) pg MCHC 32.1 (32.0-36.0) g/dL RDW Std Deviation 47.7 H (36.4-46.3) fL RDW Coeff of Teresa 14.0 (11.5-14.5) % Plt Count 135 (130-400) K/uL MPV 11.6 (9.4-12.4) fL Immature Gran % (Auto) 0.2 % Neut % (Auto) 73.7 % Lymph % (Auto) 13.6 % [place] % (Auto) 11.8 % Eos % (Auto) 0.6 % Baso % (Auto) 0.1 % Neut # (Auto) 6.05 (1.40-6.50) K/uL Lymph # (Auto) 1.12 L (1.20-3.40) K/uL [place] # (Auto) 0.97 H (0.11-0.59) K/uL Eos # (Auto) 0.05 (0.00-0.50) K/uL Baso # (Auto) 0.01 (0.00-0.20) K/uL Immature Gran # (Auto) 0.02 (0.01-0.20) K/uL Sodium 138 (136-145) mmol/L Potassium 3.9 (3.5-5.1) mmol/L Chloride 110 H (98-107) mmol/L Carbon Dioxide 24 (21-32) mmol/L Anion Gap 4 (3-11) BUN 12 (6-23) mg/dl Creatinine 0.81 (0.6-1.2) mg/dl Est Cr Clr Drug Dosing Not Reportable Est GFR ( Amer) 74.6 ml/min Est GFR (Non-Af Amer) 64.4 ml/min BUN/Creatinine Ratio 14.8 (10-20) Glucose 133 H (70-99(Fasting)) mg/dl Calcium 8.0 L (8.6-10.3) mg/dl Phosphorus 2.4 L (2.5-4.9) mg/dl Magnesium 1.8 (1.7-2.4) mg/dl Prealbumin Pending 25-OH Vitamin D Total 29.1 L (30-100) ng/ml Medications Administered Current Inpatient Medications Acetaminophen (Acetaminophen 325 Mg Tab) 650 mg PO Q4H PRN PRN Reason: pain/fever Stop: 04/18/23 00:42 Last Admin: 03/19/23 18:09 Dose: 650 mg Aspirin (Aspirin 81 Mg Ectab) 81 mg PO BID [facility] Stop: 04/19/23 08:59 Hydralazine HCl (Hydralazine Hcl 20 Mg/Ml Vial) 5 mg IV Q6H PRN PRN Reason: Hypertension Stop: 04/18/23 00:42 Dextrose/Sodium Chloride (D5w And Nss) 1,000 mls @ 100 mls/hr IV .Q10H JOSE GUADALUPE Stop: 04/18/23 00:42 Last Admin: 03/19/23 22:52 Dose: 100 mls/hr Losartan Potassium (Losartan Potassium 25 Mg Tab) 25 mg PO BID [facility] Stop: 04/18/23 20:59 Last Admin: 03/19/23 21:44 Dose: 25 mg Morphine Sulfate (Morphine Sulfate 4 Mg/Ml 1 Ml Carp\Vial) 3 mg IV Q3H PRN PRN Reason: Pain Stop: 04/02/23 00:42 Multivitamins (Multivitamin Tab) 1 tab PO QAM [facility] Stop: 04/19/23 08:59 Ondansetron HCl (Ondansetron Inj 2 Mg/Ml 2 Ml Vial) 4 mg IV Q6H PRN PRN Reason: Nausea Stop: 04/18/23 00:42 Pantoprazole Sodium (Pantoprazole 40 Mg Tab) 40 mg PO DAILY [facility] Stop: 04/18/23 08:59 Last Admin: 03/19/23 07:58 Dose: 40 mg
[2023-03-20] MEDS ORDERED: ERGOCALCIFEROL 50,000 UNITS 1250 MCG CAP PO SCH (08:00)
[2023-03-20 08:55] LABS: Prealbumin 12.5 mg/dl (20-40)
[2023-03-20] MEDS: MULTIVITAMIN TAB PO SCH (09:06)
[2023-03-20] MEDS: PANTOprazole 40 MG TAB PO SCH (09:06)
[2023-03-20] MEDS: ASPIRIN 81 MG ECTAB PO SCH ×2 (09:06→21:46)
[2023-03-20] MEDS: LOSARTAN POTASSIUM 25 MG TAB PO SCH ×2 (09:06→21:48)
[2023-03-20] MEDS: MAGNESIUM OXIDE 400 MG TAB PO SCH (09:06)
[2023-03-20] MEDS: D5W AND NSS 1,000 ML IV SCH (09:10)
[2023-03-20] MEDS: ACETAMINOPHEN 325 MG TAB PO PRN (10:38)
[2023-03-20] MEDS ORDERED: oxyCODONE HCL IR 5 MG TAB (IMMEDIATE RELEASE) PO PRN (11:19)
--- NOTE | 2023-03-20 17:44 | Orthopedic Progress Note ---
Date of Service March 20, 2023 Assessment & Plan (1) Closed left hip fracture: Plan: Patient is postop day 1 status post ORIF of left intertrochanteric femur fracture with intramedullary nailing,doing well Patient was advised and reassured she can place weight on the left lower extremity with walker and with assistance. Recommend she continues to use walker at least 2 to 3 months after she is discharged. She was advised not to get out of bed without assistance to prevent fall. Dressing intact negative for any soiling. Will continue to monitor and change if soiled. Will continue with physical therapy and Occupational Therapy Continue utilizing ice over the left hip x 20 minutes over her gown or blanket. She may do this as needed Continue with aspirin 81 mg twice daily for DVT prophylaxis Pain management per primary Case management for discharge planning Patient will follow-up in the office in 2 weeks Present on Admission?: Yes Admission and Anticipated Discharge Date Admission Date: March 18, 2023 Subjective Patient is an 88-year-old female who is postop 1 status post a ORIF left displaced intertrochanteric femoral fracture with intramedullary nailing. Patient is sitting upright in bed. She is alert and oriented x 3. She does not appear to be in any distress. She states she is doing okay she just has some hesitancy with putting any weight on the right lower extremity when she is using the bedside commode. She states she has mild pain and rates 6/10. She denies any redness or draining's over the incisions, fever, chills, chest pain or shortness of breath. She offers no concerns. Review of Systems Review of Systems: Please refer to HPI Physical Exam Physical Exam: General: Patient sitting upright in bed alert and oriented x 3 no acute distress pleasant and conversive does not appear to be in any distress or pain Integumentary/musculoskeletal: Incisions are covered with dressing. Negative for any soiling or erythema surrounding this area. Negative for any ecchymosis mild edema which is to be expected. She has mild tenderness surrounding the area. I do not appreciate any fluid or fluctuance or hematoma. Patient is able to tolerate active assist knee flexion and extension and gentle hip range of motion. She is unable to do a straight leg raise without assistance. She is able to dorsiflex and plantarflex ankle. She is able to wiggle toes. Sensation is intact over lower extremity. DP is 1+. Results & Data Vital Signs (Past 12 Hours) Vital Signs Temp Pulse Resp BP Pulse Ox O2 Del Method 03/20/23 16:20 36.4 C L 67 18 173/67 H 98 Room Air 03/20/23 09:17 36.7 C 94 H 18 143/74 H 97 Room Air Laboratory Results 03/20/23 Range/Units 05:33 WBC 8.22 (4.8-10.8) K/ul RBC 3.38 L (4.20-5.40) M/uL Hgb 10.0 L (12.0-16.0) g/dl Hct 31.2 L (37.0-47.0) % MCV 92.3 (80.0-100.0) fL MCH 29.6 (25.0-34.0) pg MCHC 32.1 (32.0-36.0) g/dL RDW Std Deviation 47.7 H (36.4-46.3) fL RDW Coeff of Teresa 14.0 (11.5-14.5) % Plt Count 135 (130-400) K/uL MPV 11.6 (9.4-12.4) fL Immature Gran % (Auto) 0.2 % Neut % (Auto) 73.7 % Lymph % (Auto) 13.6 % [place] % (Auto) 11.8 % Eos % (Auto) 0.6 % Baso % (Auto) 0.1 % Neut # (Auto) 6.05 (1.40-6.50) K/uL Lymph # (Auto) 1.12 L (1.20-3.40) K/uL [place] # (Auto) 0.97 H (0.11-0.59) K/uL Eos # (Auto) 0.05 (0.00-0.50) K/uL Baso # (Auto) 0.01 (0.00-0.20) K/uL Immature Gran # (Auto) 0.02 (0.01-0.20) K/uL Sodium 138 (136-145) mmol/L Potassium 3.9 (3.5-5.1) mmol/L Chloride 110 H (98-107) mmol/L Carbon Dioxide 24 (21-32) mmol/L Anion Gap 4 (3-11) BUN 12 (6-23) mg/dl Creatinine 0.81 (0.6-1.2) mg/dl Est Cr Clr Drug Dosing Not Reportable Est GFR ( Amer) 74.6 ml/min Est GFR (Non-Af Amer) 64.4 ml/min BUN/Creatinine Ratio 14.8 (10-20) Glucose 133 H (70-99(Fasting)) mg/dl Calcium 8.0 L (8.6-10.3) mg/dl Phosphorus 2.4 L (2.5-4.9) mg/dl Magnesium 1.8 (1.7-2.4) mg/dl Prealbumin 12.5 L (20-40) mg/dl 25-OH Vitamin D Total 29.1 L (30-100) ng/ml (1) Closed left hip fracture Encounter type: initial encounter Qualified Code(s): S72.002A - Fracture of unspecified part of neck of left femur, initial encounter for closed fracture
[2023-03-21 07:36] LABS: Hematocrit (blood only) 28.1 % (37.0-47.0); Hemoglobin 9.2 g/dl (12.0-16.0); Mean Corpuscular Hemoglobin 30.3 pg (25.0-34.0); Mean Corpuscular Hgb Conc 32.7 g/dL (32.0-36.0); Mean Corpuscular Volume 92.4 fL (80.0-100.0); Mean Platelet Volume 11.7 fL (9.4-12.4); Platelet Count 132 K/uL (130-400); RDW Coefficient of Variation 14.3 % (11.5-14.5); RDW Standard Deviation 48.8 fL (36.4-46.3); Red Blood Count 3.04 M/uL (4.20-5.40); White Blood Count 7.71 K/ul (4.8-10.8)
--- NOTE | 2023-03-21 07:42 | Hospitalist Progress Note ---
Date of Service March 21, 2023 Assessment & Plan (1) Hip fracture, left: Plan: 88-year-old female with past medical history significant for hypertension and GERD who is from [place] and visiting [place] s/p fall and left hip fracture. Left hip fracture Status post mechanical fall Orthopedics consulted - s/p open reduction internal fixation left intertrochanteric femur fracture with an intramedullary nail. (03/19/2023) Closely monitor PT/OT per ortho Pain control DVT ppx per ortho - ASA bid Acute blood loss anemia, post-op vs dilutional -current Hgb 9.2 (down from 10 yesterday), pre-op 12.9 - expected, at this point no need for blood transfusion - cont. to monitor Hypovitaminosis D - vit D level 29.1 -started vit. D supplement Hypertension - losartan resumed - IV hydralazine as needed GERD PPI DVT prophylaxis ASA bid - As per Ortho Disposition Medical floor Full code Admission and Anticipated Discharge Date Admission Date: March 18, 2023 Subjective Pt seen in follow up of hip fracture Currently sitting up in chair in [facility] S/p - ORIF left displaced intertrochanteric femur fracture with intramedullary nail No chest pain, palpitations, shortness of breath. No abd. pain n/v Review of Systems Review of Systems: All systems reviewed & are unremarkable except as noted in Subjective Physical Exam Physical Exam: General- Not in di stress Head- atr aumatic Eyes- PER RL. ENT- orophary nx clear Neck- vasquez pple, no JVD. Ry gs- clear to auscu ltation, no wheezi ng or crackles. H eart- regular rhyt hm; no murmur, no gallop. Abdomen- normal bowel sound s, soft, nontender , no distension. Extremities- surgi júnior dressings note d over left hip, n o erythema, no leora ma noted Neuro- a lert, oriented PE RRL,Hard of hearin g no facial palsy ; no dysarthria;Ob eys commands. Ski n- warm & dry Results & Data Results & Data Vital Signs (Past 12 Hours) Vital Signs Temp Pulse Resp BP Pulse Ox O2 Del Method 03/21/23 07:31 37.4 C 81 18 146/70 H 96 Room Air Laboratory Results 03/21/23 Range/Units 06:03 WBC 7.71 (4.8-10.8) K/ul RBC 3.04 L (4.20-5.40) M/uL Hgb 9.2 L (12.0-16.0) g/dl Hct 28.1 L (37.0-47.0) % MCV 92.4 (80.0-100.0) fL MCH 30.3 (25.0-34.0) pg MCHC 32.7 (32.0-36.0) g/dL RDW Std Deviation 48.8 H (36.4-46.3) fL RDW Coeff of Teresa 14.3 (11.5-14.5) % Plt Count 132 (130-400) K/uL MPV 11.7 (9.4-12.4) fL Sodium 139 (136-145) mmol/L Potassium 3.9 (3.5-5.1) mmol/L Chloride 109 H (98-107) mmol/L Carbon Dioxide 23 (21-32) mmol/L Anion Gap 7 (3-11) BUN 12 (6-23) mg/dl Creatinine 0.68 (0.6-1.2) mg/dl Est Cr Clr Drug Dosing Not Reportable Est GFR ( Amer) 89.9 ml/min Est GFR (Non-Af Amer) 77.6 ml/min BUN/Creatinine Ratio 17.6 (10-20) Glucose 110 H (70-99(Fasting)) mg/dl Calcium 8.2 L (8.6-10.3) mg/dl Phosphorus 2.0 L (2.5-4.9) mg/dl Magnesium 1.7 (1.7-2.4) mg/dl Medications Administered Current Inpatient Medications Acetaminophen (Acetaminophen 325 Mg Tab) 650 mg PO Q4H PRN PRN Reason: pain/fever Stop: 04/18/23 00:42 Last Admin: 03/20/23 10:38 Dose: 650 mg Aspirin (Aspirin 81 Mg Ectab) 81 mg PO BID [facility] Stop: 04/19/23 08:59 Last Admin: 03/20/23 21:46 Dose: Not Given Ergocalciferol (Ergocalciferol 50,000 Units 1250 Mcg Cap) 50,000 units PO Q7D [facility] Stop: 04/19/23 07:59 Last Admin: 12/25/23 09:06 Dose: 50,000 units Hydralazine HCl (Hydralazine Hcl 20 Mg/Ml Vial) 5 mg IV Q6H PRN PRN Reason: Hypertension Stop: 04/18/23 00:42 Losartan Potassium (Losartan Potassium 25 Mg Tab) 25 mg PO BID [facility] Stop: 04/18/23 20:59 Last Admin: 03/20/23 21:48 Dose: 25 mg Magnesium Oxide (Magnesium Oxide 400 Mg Tab) 400 mg PO QAM [facility] Stop: 04/19/23 08:59 Last Admin: 03/20/23 09:06 Dose: 400 mg Morphine Sulfate (Morphine Sulfate 4 Mg/Ml 1 Ml Carp\Vial) 3 mg IV Q3H PRN PRN Reason: Pain Stop: 04/02/23 00:42 Multivitamins (Multivitamin Tab) 1 tab PO QAM [facility] Stop: 04/19/23 08:59 Last Admin: 03/20/23 09:06 Dose: 1 tab Ondansetron HCl (Ondansetron Inj 2 Mg/Ml 2 Ml Vial) 4 mg IV Q6H PRN PRN Reason: Nausea Stop: 04/18/23 00:42 Oxycodone HCl (Oxycodone Hcl Ir 5 Mg Tab (Immediate Release)) 5 mg PO Q4H PRN PRN Reason: Pain Stop: 04/03/23 11:18 Last Admin: 03/20/23 11:41 Dose: 5 mg Pantoprazole Sodium (Pantoprazole 40 Mg Tab) 40 mg PO DAILY [facility] Stop: 04/18/23 08:59 Last Admin: 03/20/23 09:06 Dose: 40 mg
--- NOTE | 2023-03-21 07:43 | Orthopedic Progress Note ---
Date of Service March 21, 2023 Assessment & Plan (1) Closed left hip fracture: Plan: Patient is postop day 2 status post ORIF of left intertrochanteric femur fracture with intramedullary nailing,doing well Weightbearing as tolerated on the left lower extremity with walker and with assistance. Recommend she continues to use walker at least 2 to 3 months after she is discharged. She was advised not to get out of bed without assistance to prevent fall. Dressing intact negative for any soiling. Will continue to monitor and change if soiled. Will continue with physical therapy and Occupational Therapy Continue utilizing ice over the left hip x 20 minutes over her gown or blanket. She may do this as needed Continue with aspirin 81 mg twice daily for DVT prophylaxis Pain management per primary Case management for discharge planning Patient will follow-up in the office in 2 weeks Admission and Anticipated Discharge Date Admission Date: March 18, 2023 Subjective Postop day 2 following intramedullary nail for left intertrochanteric femur fracture. Patient had difficulty ambulating with physical therapy yesterday. However her pain is well-controlled. Tolerating an oral diet. No fevers or chills. Physical Exam Physical Exam: On exam she is a pleasant female alert and oriented x 3. She has a little difficulty answering questions but is able to easily follow our conversation. Mental status appears to to be similar to what she was before surgery. Left Hip exam reveals dressings to be clean dry and intact. There are no skin lesions. She reports sensation intact to moving light touch over the dorsal and plantar aspects of the foot. She is able to wiggle her toes and fire EHL FHL tib ant gastrocsoleus. Skin is warm and well-perfused however it is difficult to palpate her dorsalis pedis and posterior tibial pulses. Results & Data Vital Signs (Past 12 Hours) Vital Signs Temp Pulse Resp BP Pulse Ox O2 Del Method 03/21/23 07:31 37.4 C 81 18 146/70 H 96 Room Air (1) Closed left hip fracture Encounter type: initial encounter Qualified Code(s): S72.002A - Fracture of unspecified part of neck of left femur, initial encounter for closed fracture
[2023-03-21 08:20] LABS: Anion Gap 7 (3-11); BUN Creatinine Ratio 17.6 (10-20); Blood Urea Nitrogen 12 mg/dl (6-23); Calcium 8.2 mg/dl (8.6-10.3); Carbon Dioxide 23 mmol/L (21-32); Chloride 109 mmol/L (98-107); Est GFR (African American) 89.9 ml/min; Est GFR (Non-African American) 77.6 ml/min; Glucose 110 mg/dl (70-99(Fasting)); Magnesium 1.7 mg/dl (1.7-2.4); Potassium 3.9 mmol/L (3.5-5.1); Sodium 139 mmol/L (136-145)
[2023-03-21] MEDS: ASPIRIN 81 MG ECTAB PO SCH ×2 (08:41→19:38)
[2023-03-21] MEDS: LOSARTAN POTASSIUM 25 MG TAB PO SCH ×2 (08:45→19:38)
[2023-03-21] MEDS: MAGNESIUM OXIDE 400 MG TAB PO SCH (08:46)
[2023-03-21] MEDS: MULTIVITAMIN TAB PO SCH (08:46)
[2023-03-21] MEDS: PANTOprazole 40 MG TAB PO SCH (08:46)
[2023-03-21 16:32] VITALS: O2SAT 97
[2023-03-22 06:49] LABS: Hematocrit (blood only) 26.6 % (37.0-47.0); Hemoglobin 8.9 g/dl (12.0-16.0); Mean Corpuscular Hemoglobin 30.2 pg (25.0-34.0); Mean Corpuscular Hgb Conc 33.5 g/dL (32.0-36.0); Mean Corpuscular Volume 90.2 fL (80.0-100.0); Mean Platelet Volume 11.3 fL (9.4-12.4); Platelet Count 164 K/uL (130-400); Red Blood Count 2.95 M/uL (4.20-5.40); White Blood Count 7.08 K/ul (4.8-10.8)
[2023-03-22 07:11] LABS: Anion Gap 5 (3-11); BUN Creatinine Ratio 15.9 (10-20); Blood Urea Nitrogen 11 mg/dl (6-23); Calcium 8.3 mg/dl (8.6-10.3); Carbon Dioxide 25 mmol/L (21-32); Chloride 109 mmol/L (98-107); Est GFR (African American) 89.5 ml/min; Est GFR (Non-African American) 77.2 ml/min; Glucose 111 mg/dl (70-99(Fasting)); Magnesium 1.8 mg/dl (1.7-2.4); Phosphorus 2.7 mg/dl (2.5-4.9); Sodium 139 mmol/L (136-145)
[2023-03-22 07:16] VITALS: BP 153/68; PULSE 80; RESP 18; TEMP 98.2
[2023-03-22] MEDS: PANTOprazole 40 MG TAB PO SCH (07:52)
--- NOTE | 2023-03-22 08:57 | Orthopedic Progress Note ---
Date of Service March 22, 2023 Assessment & Plan (1) Closed left hip fracture: Plan: Patient is postop day#3 status post ORIF of left intertrochanteric femur fracture with intramedullary nailing,doing well Weightbearing as tolerated on the left lower extremity with walker and with assistance. Recommend she continues to use walker at least 2 to 3 months after she is discharged. She was advised not to get out of bed without assistance to prevent fall. Proximal dressing was changed distal dressing was intact and negative for soiling. Will continue to monitor and change if soiled. Will continue with physical therapy and Occupational Therapy Continue utilizing ice over the left hip x 20 minutes over her gown or blanket. She may do this as needed Continue with aspirin 81 mg twice daily for DVT prophylaxis Pain management per primary Hg dropped. Recommend continue to monitor asymptomatic at this time. Case management for discharge planning From orthopedic standpoint she is ready for d/c once medically stable. Patient will follow-up in the office in 2 weeks Admission and Anticipated Discharge Date Admission Date: March 18, 2023 Subjective Patient is s/p ORIF left displaced intertrochanteric femur fracture with intramedullary nail POD #3.She was seen bedside this am sitting upright just finished breakfast. She is in good spirts. She states she is doing well. She c/o not being able to lift the leg off of the bed still. She states she has some pain in the hip when she moves certain ways and rates 6/10. She states she has no pain w/ rest. She tries to do exercises in the bed. She denies any SOB, dizziness, CP, abdominal pain, fever or chills. Pt seen in follow up of hip fracture Review of Systems Review of Systems: Please refer to HPI Physical Exam Physical Exam: General: Patient sitting upright in bed alert and oriented x 3 no acute distress pleasant and conversive does not appear to be in any distress or pain.AKUTAN Integumentary/musculoskeletal: Incisions are covered with dressing. Proximal dressing is soiled. removed dressing. incision is well approximated. [place] in place. Negative for any active bleeding or drainage. Negative for any erythema. Negative for any soiling or erythema at distal incision/dressing. Negative for any ecchymosis or edema of the LLE. Negative for any fluctuance or hematoma surrounding the incisions. Patient is able to tolerate active assist knee flexion and extension and gentle hip range of motion. She is unable to do a straight leg raise without assistance. She tolerates log roll of the LLE. She is able to dorsiflex and plantarflex ankle. She is able to wiggle toes. Calf is soft and nontender. Sensation is intact over lower extremity. DP is 1+. Results & Data Vital Signs (Past 12 Hours) Vital Signs Temp Pulse Resp BP BP Pulse Ox O2 Del Method 03/22/23 07:14 36.8 C 80 18 153/68 H 97 Room Air 03/21/23 21:02 36.9 C 88 16 155/70 H 97 Room Air Laboratory Results 03/22/23 Range/Units 05:41 WBC 7.08 (4.8-10.8) K/ul RBC 2.95 L (4.20-5.40) M/uL Hgb 8.9 L (12.0-16.0) g/dl Hct 26.6 L (37.0-47.0) % MCV 90.2 (80.0-100.0) fL MCH 30.2 (25.0-34.0) pg MCHC 33.5 (32.0-36.0) g/dL RDW Std Deviation 46.0 (36.4-46.3) fL RDW Coeff of Teresa 14.0 (11.5-14.5) % Plt Count 164 (130-400) K/uL MPV 11.3 (9.4-12.4) fL Sodium 139 (136-145) mmol/L Potassium 4.0 (3.5-5.1) mmol/L Chloride 109 H (98-107) mmol/L Carbon Dioxide 25 (21-32) mmol/L Anion Gap 5 (3-11) BUN 11 (6-23) mg/dl Creatinine 0.69 (0.6-1.2) mg/dl Est Cr Clr Drug Dosing Not Reportable Est GFR ( Amer) 89.5 ml/min Est GFR (Non-Af Amer) 77.2 ml/min BUN/Creatinine Ratio 15.9 (10-20) Glucose 111 H (70-99(Fasting)) mg/dl Calcium 8.3 L (8.6-10.3) mg/dl Phosphorus 2.7 (2.5-4.9) mg/dl Magnesium 1.8 (1.7-2.4) mg/dl (1) Closed left hip fracture Encounter type: initial encounter Qualified Code(s): S72.002A - Fracture of unspecified part of neck of left femur, initial encounter for closed fracture
[2023-03-22] MEDS: MAGNESIUM OXIDE 400 MG TAB PO SCH (09:09)
[2023-03-22] MEDS: MULTIVITAMIN TAB PO SCH (09:09)
[2023-03-22] MEDS: LOSARTAN POTASSIUM 25 MG TAB PO SCH (09:09)
[2023-03-22] MEDS: ASPIRIN 81 MG ECTAB PO SCH (09:10)
[2023-03-22] MEDS ORDERED: FERROUS SULFATE 325 MG TAB PO SCH (12:45)
--- NOTE | 2023-03-22 12:55 | Discharge Summary ---
Date of Service March 22, 2023 Admission HPI Per Admitting Provider 88-year-old female with past medical history significant for hypertension and GERD who is from [place] and visiting [place] is s/p fall and left hip fracture. Patient was trying to go to bathroom when she was trying to open the door she slipped and fell on the left side. Did not hit her head. No loss of consciousness. Not able to get up. And was brought in here and found a left hip fracture. Any movement is making her pain worse. No chest pain falling down. Patient is somewhat hard of hearing. Family in the room. Patient denies headache. No neck pain. No chest pain. Was nauseous after falling down. Was slightly short of breath because of anxiety and pain. No fevers. No recent cough. Currently hemodynamically stable. Past med history. As mentioned above Past surgical history. Hysterectomy. Had intestinal resection for for cancer in 2019 with no recurrence as per family. Social history. Quit smoking 40 years ago. No alcohol use. Family history. Significant for cancer in the family Admission Exam Per Admitting Provider General- Not in distress Head- atraumatic Eyes- PERRL. ENT- oropharynx clear Neck- supple, no JVD. Lungs- clear to auscultation, no wheezing or crackles. Heart- regular rhythm; no murmur, no gallop. Abdomen- normal bowel sounds, soft, nontender, no distension. Extremities- Left lower extremity shortened and externally rotated,No edema or erythema seen. Neuro- alert, oriented PERRL,Hard of hearing no facial palsy; no dysarthria;Obeys commands. Skin- warm & dry Principal Diagnosis Left hip fracture s/p ORIF Discharge Exam General- WD/WN elderly F in NAD Head- atraumatic Eyes- PERRL. ENT- oropharynx clear Neck- supple, no JVD. Lungs- clear to auscultation, no wheezing or crackles. Heart- regular rhythm; no murmur, no gallop. Abdomen- normal bowel sounds, soft, nontender, no distension. Extremities- surgical dressings noted over left hip, no erythema, no edema noted Neuro- alert, oriented, PERRL,Hard of hearing no facial palsy; no dysarthria, moves extremities. Skin- warm & dry Discharge Data Allergies Allergy/AdvReac Type Severity Reaction Status Date / Time No Known Allergies Allergy Verified 12/23/23 22:15 Consultations 03/18/23 22:41 Consult Orthopedic Surgery Routine ED Decision to Admit Stat Procedures Performed Operation Date: 03/19/23 09:00 Actual Procedures p Open reduction internal fixation left intertrochanteric femur fracture with intramedullary nail. (Left) - Ketan Urbano MD Ordered Studies 03/19/23 [place] hip LT 2-3V Routine FINDINGS: Status post internal fixation of the left femoral intertrochanteric fracture with a proximal femoral intramedullary belkis and interlocking femoral neck pin. The hardware is intact. Alignment is near-anatomic. IMPRESSION: Fluoroscopic assistance as above. Hospital Course (1) Hip fracture, left: 88-year-old female with past medical history significant for hypertension and GERD who is from [place] and visiting [place] s/p fall and left hip fracture. Left hip fracture Status post mechanical fall Orthopedics consulted - s/p open reduction internal fixation left intertrochanteric femur fracture with an intramedullary nail. (03/19/2023) Closely monitor PT/OT per ortho Pain control DVT ppx per ortho - ASA bid Per orthopedics- Weightbearing as tolerated on the left lower extremity with walker and with assistance. Recommend she continues to use walker at least 2 to 3 months after she is discharged. She was advised not to get out of bed without assistance to prevent fall. Proximal dressing was changed distal dressing was intact and negative for soiling. Will continue to monitor and change if soiled. Will continue with physical therapy and Occupational Therapy Continue utilizing ice over the left hip x 20 minutes over her gown or blanket. She may do this as needed Continue with aspirin 81 mg twice daily for DVT prophylaxis From orthopedic standpoint she is ready for d/c. Patient will follow-up in the office in 2 weeks Acute blood loss anemia, post-op vs dilutional - current Hgb 8.9 (9.2 yesterday and 10 day prior), pre-op 12.9 - Hgb from yesterday essentially unchanged, but needs to closely monitor - recommend monitor H&H in rehab after DC - no need for blood transfusion at this time - will start iron supplement Hypovitaminosis D - vit D level 29.1 - started vit. D supplement Hypertension - losartan resumed - IV hydralazine as needed GERD PPI DVT prophylaxis ASA bid - As per Ortho Total Time Total Time Spent Total Time Spent (In Minutes): 40 Discharge Plan Discharge Items Patient Disposition: Transfer Inpatient Rehab Fac Reason For Visit: FALL, LEFT HIP FRACTURE Discharge Diagnosis: Left hip fracture s/p ORIF Activity: Per Instructions section Weightbearing: Left weightbearing Weightbearing Comment: with walker Non-emergency contact: Surgeon Call non-emergency contact if: you have any medication questions, your symptoms worsen, your pain is not controlled, your temperature is above 101, your wound has increased redness and your wound has increased drainage Follow-up/Referrals: SVETLANA HOBBS [Other] Casper Gong PA-C [Physician Cannery Tender Engineer] - 03/31/23 2:00 pm Diet: Regular Addtl Attending Provider Instructions: Please, read instructions from your orthopedic surgeon below, in detail. Take aspirin 81 mg twice a day to prevent blood clots. For pain, take tylenol as prescribed, and for more severe pain, take oxycodone as needed, as prescribed. Recommend to take vit. D supplement and iron supplement. Follow up with a physician in rehab and then your primary care physician within one week after you leave the rehab. Addtl Regional Operations Director Provider Instructions: Post-operative Instructions Dear Patient and Family/Friends, Before you are discharged from the hospital, it is important to know what to expect when you get home after surgery. To that end, we have created this sheet of discharge instructions which covers many commonly asked questions. Make sure you go through this sheet in its entirety with your nurse before you are discharged. Please note that we will go over the specifics of your surgery and recovery when you return for your first post-operative visit. Sincerely, Dr. Urbano Pain Expect to be in a fair amount of pain after surgery. Remember, our goal is not to eliminate your pain, but to make it tolerable. It is a good idea to stay ahead of your pain by taking the medications you were prescribed once you get home. Typically, the pain starts improving 3-7 days after surgery. You should start weaning off the narcotic pain medication (oxycodone, hydrocodone, hydromorphone, morphine) as soon as your pain improves. Please call our office if your pain is not adequately controlled. Ice Ice your operative site at least 5 times a day for 15-30 minutes at a time. Make sure you have a thin cloth between the ice or cooling unit and your skin to prevent tsai bite. This is especially important if you received a nerve block. Continue icing your operative site for the first 5-7 days after surgery, then as needed. Diet/Nausea/Vomiting Start by drinking clear liquids and eating crackers. If you can tolerate this, then you may resume your normal diet. If you feel nauseated or vomit, take Zofran/ondansetron (if prescribed). Please call our office if you have intractable nausea or vomiting, or, if after hours, you may go to the Emergency Room for help. Constipation Constipation is a common side effect of narcotic pain medication. If you have not had a bowel movement within 2 days after surgery, we recommend purchasing an over the counter laxative such as Milk of Magnesia, Dulcolax, or Miralax from a local pharmacy, and taking it as instructed. Call our clinic if any questions. Nerve block The anesthesia team sometimes places a nerve block to help with post-operative pain control. This results in significant numbness and inability to move the extremity. The nerve block usually wears off in 8-12 hours, but sometimes can last up to 24 hours. Please call our office if you are still unable to move your extremity after 24 hours, unless you received a pain pump to take home. Nerve blocks typically wear off quickly, so start taking pain medication as soon as you start feeling soreness near your surgical site. Weight bearing and Range of Motion. You may put full weight through the left leg using a walker at all times. Recommend use of walker for 2-3 months post surgery. You can do exercises from physical therapy daily. Physical therapy You will be given a prescription for physical therapy or occupational therapy at your first post-operative appointment. Typically, patients start therapy within 1 week of surgery Wound care and showering We will inspect your wound at your first post-operative visit, and may do a dressing change at that time. Most patients will be in a water-proof dressing that is removed 14 days after surgery. It is normal to see some dried blood on the dressing. Do not remove your dressing, paper strips or sutures yourself unless you are given permission. Showering is allowed the day after surgery. Do not scrub or remove any dressings. The wound should not be submerged underwater (i.e. in a bathtub or pool) until 4 weeks after surgery MELVIN stockings If you were given white stockings, these are to be worn at all times except to shower (on both legs) for the first 2 weeks after surgery. Aspirin Please take an 81 mg aspirin twice a day for the next 30 days after surgery to prevent a blood clot. Driving You may not drive while taking narcotic pain medication or while in a cast, splint, sling or brace. You, the patient, need to make the final determination about when you are safe to drive, however, the earliest you may consider driving after surgery is below: Hand/Wrist/Elbow Surgery: 3 days Shoulder Surgery: 2 weeks Hip,/Knee/Ankle Surgery: 4 weeks Fracture repair: 6 weeks Return to Work Your return to work depends on what surgery was done and what type of work you do. Please bring any paperwork your employer needs completed to your first post-operative visit. Also, bring a description of your job duties, as this helps us to understand what risks you may face at work. Travel Avoid long distance travel (greater than 1 hour) in airplanes and cars for the first 6 weeks after surgery. If you must travel, you need to have a Doppler ultrasound done before you travel to rule out a blood clot in your legs. Follow-up You should have a follow-up appointment already scheduled after surgery. If not, please contact our office to make this appointment before you leave the hospital. When to call the office It is normal to have swelling and bruising in the limb that was operated on. This will improve with time. It is also normal to have fevers for the first 2 days after surgery. Reasons you should call your doctor include: Uncontrolled pain; Nausea, vomiting, or constipation that does not improve with medication; Fevers over 101.5, chills, sweats; Drainage or bleeding from the wound; Foul odor; Spreading areas of redness; Any other concerns Pending Studies at Discharge: No Stand-Alone Forms: My [facility] Skilled Items Patient informed of condition?: Yes DNR: No Discharge Level of Care: Acute rehab Communicable Disease: No Discharge Prognosis: Stable Lines: None Urinary Catheter: No Medications and DC Order Prescriptions: New aspirin 81 mg Tablet,Delayed Release (Dr/Ec) 81 mg PO BID Qty: 60 0RF acetaminophen 325 mg Tablet 650 mg PO Q4H PRN (Reason: fever or pain) Qty: 20 0RF magnesium oxide 400 mg (241.3 mg magnesium) Tablet 400 mg PO QAM Qty: 10 0RF ergocalciferol (vitamin D2) 1,250 mcg (50,000 unit) Capsule 50,000 unit PO Q7D Qty: 7 0RF ferrous sulfate 325 mg (65 mg iron) Tablet,Delayed Release (Dr/Ec) 325 mg PO QAM Qty: 14 0RF oxycodone 5 mg Tablet 5 mg PO Q4H PRN (Reason: pain) Qty: 10 0RF Continued pantoprazole 40 mg tablet,delayed release (DR/EC) 40 mg PO DAILY losartan 25 mg tablet 25 mg PO BID Eye-Vites Tablet 1 tab PO DAILY Discharge Orders: Discharge Order (Routine); Ordered 03/22/23 Ordered By: Dheeraj Kenny Admission Data Admit Date/Time: 03/18/23 23:34 Attending Provider: Dheeraj Kenny Admit Provider: Theo Servin Primary Care Provider: Svetlana Hobbs Other Providers: [facility]; Theo Servin; Ketan Urbano
== END 2023-03-22 17:54 | DRG 481 ==
LOC: ED 21:24 → 3W 23:34
DX: Z87.891 Personal history of nicotine dependence; S72.142A Displaced intertrochanteric fracture of left femur, initial encounter for closed fracture; K21.9 Gastro-esophageal reflux disease without esophagitis; E55.9 Vitamin D deficiency, unspecified; Y92.012 Bathroom of single-family (private) house as the place of occurrence of the external cause; D62 Acute posthemorrhagic anemia; W01.198A Fall on same level from slipping, tripping and stumbling with subsequent striking against other object, initial encounter; I10 Essential (primary) hypertension